=== PATIENT | female | born 1980 | race African-American/Black ===

== ENCOUNTER → 2016-11-28 | Outpatient (CLI) | payer MEDICARE, MEDICAID ==
[2016-11-28 12:42] LABS: Basophils # (auto) 0 uL; CONDITION Y; Eosinophils # (auto) 0.2 uL; Eosinophils % (auto) 4.1 % (0.0-7.0); Hematocrit 37.6 % (36.0-46.0); Hemoglobin 12.6 g/dL (12.2-16.2); Lymphocytes # (auto) 1.6 uL; Lymphocytes % (auto) 36.4 % (10.0-50.0); Mean Corpuscular Hemoglobin 29.3 pg (28.0-32.0); Mean Corpuscular Hgb Conc. 33.5 g/dL (32.0-36.0); Mean Corpuscular Volume 87.6 fL (80.0-100.0); Mean Platelet Volume 8.4 fL (7.4-10.4); Monocytes # (auto) 0.5 uL; Monocytes % (auto) 10.5 % (0.0-12.0); Neutrophils # (auto) 2.1 uL; Platelet Count (auto) 295 10^3/uL (140-450); Reticulocyte Count 1.66 % (0.5-1.5); White Blood Cell 4.4 10^3/uL (4.4-10.8)
[2016-11-28 13:38] LABS: Albumin 3.6 g/dL (3.4-5.0); Calcium 8.3 mg/dL (8.5-10.1); Potassium 4.8 mmol/L (3.5-5.1)
[2016-11-28 13:40] LABS: BUN/Creatinine Ratio 12.5
[2016-11-28 13:42] LABS: Bilirubin, Total 0.3 mg/dL (0.2-1.0); Total Protein 6.8 g/dL (6.4-8.2)
[2016-11-28 13:45] LABS: Wright Stain Ready for Review
[2016-11-28 14:10] LABS: Temperature: 22.2 C (20.0-25.0)
== END | disposition home or self-care (01) ==
LOC: LAB 12:06
PROVIDERS: ATTEND Internal Medicine
DX: D64.9 Anemia, unspecified (principal)
CPT/HCPCS: 36415; 80053; 82607; 82728; 82746; 83540; 83550; 83615; 84439; 84443; 85025; 85045; 85652

== ENCOUNTER 2017-02-15 01:08 | Emergency (ER) | payer MEDICARE, MEDICAID ==
[~2017-02-15] VITALS: Ht 170.2 cm; Wt 79.4 kg
[2017-02-15 02:36] VITALS: BP 159/91
[2017-02-15] MEDS ORDERED: ONDANSETRON ODT 4 MG TAB PO ONE (03:00)
[2017-02-15] MEDS ORDERED: BACITRACIN-POLYMYXIN B TOPICAL OINT UD TOP ONE (03:44)
[2017-02-15] MEDS ORDERED: IBUPROFEN 600 MG TAB PO ONE (04:00)
== END 2017-02-15 04:04 | disposition home or self-care (01) ==
LOC: ER 01:11
DX: S61.411A Laceration without foreign body of right hand, initial encounter (principal); W45.8XXA Other foreign body or object entering through skin, initial encounter; Y93.89 Activity, other specified; Y92.89 Other specified places as the place of occurrence of the external cause; Y99.8 Other external cause status
CPT/HCPCS: 12002; 73130; 99284; Q0162

== ENCOUNTER → 2017-06-15 | Outpatient (CLI) | payer MEDICARE ==
[2017-06-15 15:48] LABS: Basophils # (auto) 0.1 uL; Basophils % (auto) 0.9 % (0.0-2.0); Eosinophils # (auto) 0.1 uL; Eosinophils % (auto) 1.5 % (0.0-7.0); Hematocrit 38.2 % (36.0-46.0); Hemoglobin 12.4 g/dL (12.2-16.2); Lymphocytes # (auto) 2.1 uL; Lymphocytes % (auto) 36.2 % (10.0-50.0); Mean Corpuscular Hemoglobin 29.3 pg (28.0-32.0); Mean Corpuscular Hgb Conc. 32.4 g/dL (32.0-36.0); Mean Corpuscular Volume 90.4 fL (80.0-100.0); Monocytes # (auto) 0.8 uL; Monocytes % (auto) 14.3 % (0.0-12.0); Neutrophils # (auto) 2.8 uL; Neutrophils % (auto) 47.1 % (37.0-80.0); Nucleated Red Blood Cells % 0.1 %; Platelet Count (auto) 274 10^3/uL (140-450); Red Blood Cells 4.23 10^6/uL (4.0-5.20); Red Cell Distribution Width 13.1 % (11.8-14.3); White Blood Cell 5.9 10^3/uL (4.4-10.8)
[2017-06-15 17:01] LABS: % Iron Saturation 14.7 % (15-50); Albumin 3.6 g/dL (3.4-5.0); BUN/Creatinine Ratio 9.4; Bilirubin, Total 0.4 mg/dL (0.2-1.0); Calcium 8.7 mg/dL (8.5-10.1); Potassium 4.4 mmol/L (3.5-5.1); Total Protein 7.2 g/dL (6.4-8.2)
== END | disposition home or self-care (01) ==
LOC: LAB 15:14
PROVIDERS: ATTEND Internal Medicine
DX: D64.9 Anemia, unspecified (principal)
CPT/HCPCS: 36415; 80053; 83540; 83550; 83615; 85025

== ENCOUNTER → 2019-05-26 | Outpatient (CLI) | payer BC, MEDICAID, MEDICARE ==
[2019-05-26 13:25] LABS: Hematocrit 28.5 % (36.0-46.0); Hemoglobin 8.3 g/dL (12.2-16.2); Mean Corpuscular Hemoglobin 18.7 pg (28.0-32.0); Mean Corpuscular Hgb Conc. 29.2 g/dL (32.0-36.0); Mean Corpuscular Volume 63.9 fL (80.0-100.0); Platelet Count (auto) 346 10^3/uL (140-450); Red Blood Cells 4.45 10^6/uL (4.0-5.20); Red Cell Distribution Width 20.6 % (11.8-14.3); White Blood Cell 6.4 10^3/uL (4.4-10.8)
[2019-05-26 13:26] LABS: Band Neutrophils % (manual) 0; Basophils % (manual) 0 (0.0-2.0); Blast Cells 0; Metamyelocytes % 0; Myelocytes % 0; Promyelocytes % 0; Reactive Lymphocytes 0
[2019-05-26 13:43] LABS: Eosinophils % (manual) 4 (0-7); Lymphocytes % (manual) 28 (10.0-50.0); Monocytes % (manual) 4 (0-12)
== END | disposition home or self-care (01) ==
LOC: LAB 11:52
PROVIDERS: ATTEND Internal Medicine Hematology & Oncology
DX: D64.9 Anemia, unspecified (principal)
CPT/HCPCS: 36415; 85007; 85027

== ENCOUNTER → 2019-06-02 | Outpatient (CLI) | payer MEDICARE ==
[2019-06-02 11:56] LABS: Eosinophils # (auto) 0.2 uL; Lymphocytes # (auto) 2.1 uL; Monocytes # (auto) 0.3 uL
[2019-06-02 11:58] LABS: Basophils # (auto) 0 uL; Basophils % (auto) 1.3 % (0.0-2.0); Eosinophils % (auto) 4.4 % (0.0-7.0); Hematocrit 27.8 % (36.0-46.0); Hemoglobin 8.2 g/dL (12.2-16.2); Lymphocytes % (auto) 54.8 % (10.0-50.0); Mean Corpuscular Hgb Conc. 29.6 g/dL (32.0-36.0); Mean Corpuscular Volume 67.5 fL (80.0-100.0); Monocytes % (auto) 8.3 % (0.0-12.0); Neutrophils # (auto) 1.2 uL; Neutrophils % (auto) 31.2 % (37.0-80.0); Nucleated Red Blood Cells % 0.1 %; Platelet Count (auto) 344 10^3/uL (140-450); Red Blood Cells 4.12 10^6/uL (4.0-5.20); White Blood Cell 3.7 10^3/uL (4.4-10.8)
[2019-06-02 12:04] LABS: Red Cell Distribution Width 26.1 % (11.8-14.3)
== END | disposition home or self-care (01) ==
LOC: LAB 11:41
PROVIDERS: ATTEND Internal Medicine
DX: D64.9 Anemia, unspecified (principal)
CPT/HCPCS: 36415; 85025

== ENCOUNTER → 2019-06-17 | Outpatient (CLI) | payer MEDICARE ==
[2019-06-17 11:46] LABS: Basophils # (auto) 0.1 10 ^3/uL (0-0.2); Eosinophils # (auto) 0.1 10 ^3/uL (0-0.8); Nucleated Red Blood Cells % 0.1 %
[2019-06-17 11:47] LABS: Basophils % (auto) 1.4 % (0.0-2.0); Eosinophils % (auto) 3.7 % (0.0-7.0); Hematocrit 33.5 % (36.0-46.0); Lymphocytes # (auto) 1.6 10 ^3/uL (0.4-5.4); Lymphocytes % (auto) 44.1 % (10.0-50.0); Mean Corpuscular Hemoglobin 21.9 pg (28.0-32.0); Mean Corpuscular Hgb Conc. 29.8 g/dL (32.0-36.0); Mean Corpuscular Volume 73.6 fL (80.0-100.0); Monocytes # (auto) 0.4 10 ^3/uL (0-1.3); Monocytes % (auto) 9.9 % (0.0-12.0); Neutrophils # (auto) 1.5 10 ^3/uL (1.6-8.6); Neutrophils % (auto) 40.9 % (37.0-80.0); Platelet Count (auto) 219 10^3/uL (140-450); Red Blood Cells 4.55 10^6/uL (4.0-5.20); White Blood Cell 3.7 10^3/uL (4.4-10.8)
[2019-06-17 11:56] LABS: Red Cell Distribution Width 34.5 % (11.8-14.3)
[2019-06-17 12:06] LABS: Potassium 4.4 mmol/L (3.5-5.1)
[2019-06-17 12:13] LABS: Albumin 3.4 g/dL (3.4-5.0); BUN/Creatinine Ratio 18.2; Bilirubin, Total 0.2 mg/dL (0.2-1.0); Calcium 8.7 mg/dL (8.5-10.1); Total Protein 6.7 g/dL (6.4-8.2)
== END | disposition home or self-care (01) ==
LOC: LAB 11:35
PROVIDERS: ATTEND Internal Medicine
DX: D50.9 Iron deficiency anemia, unspecified (principal); D64.9 Anemia, unspecified; E20.0 Idiopathic hypoparathyroidism
CPT/HCPCS: 36415; 80053; 83970; 85025

== ENCOUNTER → 2019-08-28 | Outpatient (CLI) | payer MEDICARE ==
[2019-08-28 15:08] LABS: Basophils # (auto) 0 10 ^3/uL (0-0.2); Basophils % (auto) 0.7 % (0.0-2.0); Eosinophils # (auto) 0.2 10 ^3/uL (0-0.8); Eosinophils % (auto) 6.1 % (0.0-7.0); Hematocrit 39.4 % (36.0-46.0); Hemoglobin 12.9 g/dL (12.2-16.2); Lymphocytes # (auto) 1.4 10 ^3/uL (0.4-5.4); Lymphocytes % (auto) 39.3 % (10.0-50.0); Mean Corpuscular Hemoglobin 28.1 pg (28.0-32.0); Mean Corpuscular Hgb Conc. 32.6 g/dL (32.0-36.0); Mean Corpuscular Volume 86.1 fL (80.0-100.0); Monocytes # (auto) 0.4 10 ^3/uL (0-1.3); Monocytes % (auto) 10.4 % (0.0-12.0); Neutrophils # (auto) 1.6 10 ^3/uL (1.6-8.6); Neutrophils % (auto) 43.5 % (37.0-80.0); Nucleated Red Blood Cells % 0.1 %; Platelet Count (auto) 188 10^3/uL (140-450); Red Blood Cells 4.58 10^6/uL (4.0-5.20); White Blood Cell 3.6 10^3/uL (4.4-10.8)
[2019-08-28 15:13] LABS: Red Cell Distribution Width 20.7 % (11.8-14.3)
[2019-08-28 16:37] LABS: % Iron Saturation 27.5 % (15-50)
== END | disposition home or self-care (01) ==
LOC: LAB 14:58
PROVIDERS: ATTEND Internal Medicine
DX: D50.9 Iron deficiency anemia, unspecified (principal)
CPT/HCPCS: 36415; 82607; 83540; 83550; 85025